=== PATIENT | female | born 1970 | race Caucasian/White ===

== ENCOUNTER 2018-05-12 13:51 | Emergency (ER) | payer SELFPAY ==
[~2018-05-12] VITALS: Ht 167.6 cm; Wt 75.0 kg
[~2018-05-12 13:51] MED LIST: (None)3.5 GM OP; ANAPROX DS550 MG OR; APAP; BLOOD PRESSURE PO; BUTALBITAL/ACETAMIN1 PO; CEPHALEXIN500 MG OR; CEPHALEXIN500 MG PO; CIPRO500 MG OR; CIPROFLOXACN500 MG PO; CLONIDINE0.1 MG OR; CLONIDINE0.1 MG PO; CLONIDINE0.2 MG PO; COZAAR25 MG PO; DILAUDID4 MG PO; DILAUDID8 MG OR; FLEXERIL PO; FLONASE NASAL50 MCG; GENTAMICIN15 ML/BTL OP; HYDROCHLOROTH12.5 MG OR; HYDROCO; HYDROCO/APAP1 TA9; IBUPROFEN200 M2 OR; LEVAQUIN500 MG PO; LISINOP/HCTZ1 TA1 PO; LORTAB 10 PO; LORTAB 10-325 M1 TAB PO; LORTAB 7.5 PO; LORTAB 7.5-3251 TAB PO; LORTAB 7.57.5 MG PO; LORTAB 7.57.5 MG/TAB PO; LORTAB5 OR; LORTAB5 PO; MEDDOSEPAK PO; NO; NO MEDICATIONS; PERCOCET 5/325M1 TAB OR; PERCOCET 5/325M1 TAB PO; PHENERGAN SUPP RE; POT CHLORIDE20 ME3 OR; PROAIR HFA IN; ROBITUSS11 OR; ROBITUSSIN200 MG/10 PO; SOMA350 MG OR; SOMA350 MG PO; SULFACET SOD10 % OU; TRAMADOL HCL50 MG PO; TYLENOL325 MG OR; ULTRAM50 M1 PO; ULTRAM50 MG OR; VALIUM10 MG OR; VALIUM5 MG PO; VENTOLIN HFA IN; XANAX0.25 MG OR; ZOFRAN ODT4 MG PO; ZPAK PO; [UNRECOGNIZED DRUG - SUPPLY]; no meds
[2018-05-12 15:01] LABS: HEMATOCRIT 42.9 % (37.0-47.0); HEMOGLOBIN 14.8 g/dl (12.0-16.0); IMMATURE GRANULOCYTES 0.2 % (0.0-5.0); MEAN CELL VOLUME 93.9 fL CALC (80.0-100.0); MEAN CORPUSCULAR HGB 32.4 pG CALC (26.0-32.0); MEAN CORPUSCULAR HGB CONC 34.5 g/L CALC (32.0-36.0); NEUT# 2.89 thou/uL (2.00-7.15); RED BLOOD COUNT 4.57 mill/uL (4.20-5.60); RED CELL DISTRI WIDTH 11.7 % (11.5-15.5)
[2018-05-12 15:22] LABS: ALBUMIN 4.5 g/dL (3.2-5.0); ALKALINE PHOSPHATASE 99 u/l (38-126); ANION GAP 17 (6-22 (CALC)); BILIRUBIN, TOTAL 0.6 mg/dL (0.0-1.4); BUN 15 mg/dL (7-17); BUN/CREATININE RATIO 21 (12-20 (CALC)); CARBON DIOXIDE 24 mmol/l (22-30); CHLORIDE 104 mmol/l (95-108); CREATININE 0.7 mg/dL (0.5-1.0); GFR > 60 ML/MIN (>=60 (CALC)); GFR FOR AFR.AMER. > 60 ML/MIN (>=60 (CALC)); POTASSIUM 3.4 mmol/l (3.5-5.1); SGOT/AST 24 u/l (14-36); SODIUM 140 mmol/l (137-146); TOTAL PROTEIN 7.4 g/dL (6.3-8.2)
[2018-05-12 16:39] LABS: URINE BILIRUBIN - DIPSTICK NEGATIVE (NEGATIVE); URINE BLOOD DIPSTICK NEGATIVE (NEGATIVE); URINE COLOR YELLOW; URINE GLUCOSE - DIPSTICK NEGATIVE (NEGATIVE); URINE KETONE NEGATIVE (NEGATIVE); URINE LEUK ESTERASE NEGATIVE (NEGATIVE); URINE NITRITE - DIPSTICK NEGATIVE (Negative); URINE PROTEIN - DIPSTICK NEGATIVE (NEG-TRACE); URINE SPECIFIC GRAVITY 1.025; URINE UROBILINOGEN - DIPSTICK 0.2 E.U./dL (0.2)
[2018-05-12 16:43] LABS: BARBITURATES NEGATIVE (NEGATIVE); COCAINE NEGATIVE (NEGATIVE); METHADONE NEGATIVE (NEGATIVE); OXCYCODONE NEGATIVE (NEGATIVE); TETRAHYDROCANNABIONOL POSITIVE (NEGATIVE); TRICYLIC ANTIDEPRESSANTS NEGATIVE (NEGATIVE)
[2018-05-12] MEDS ORDERED: TESSALON PERLE100 MG PO (18:46)
[2018-05-12] MEDS ORDERED: ONDANSETRON4 MG PO (18:46)
[2018-05-12 18:56] VITALS: BP 133/96
== END 2018-05-12 18:56 | disposition home or self-care (01) | DRG 204 ==
LOC: ED 13:51
PROVIDERS: Emergency Medicine
DX: R05 Cough (principal); M79.10 Myalgia, unspecified site; R78.4 Finding of other drugs of addictive potential in blood
CPT/HCPCS: J0131; J2060; Q9967